=== PATIENT | female | born 1940 | race Caucasian/White ===

== ENCOUNTER 2024-12-01 10:26 | Emergency (ER) | payer MEDICARE, SELFPAY ==
[2024-12-01 10:40] VITALS: BP 109/68
--- NOTE | 2024-12-01 11:21 | ED.MUSCINJ ---
HPI-Injury
General
Chief Complaint: Fall
Source: patient
Exam Limitations: none
Time Seen by Provider: 12/01/24 11:00
History of Present Illness-Injury
Initial Injury comments:
84-year-old female presents complaining of left hand and finger pain after a fall. She states her finger got caught in her walker. She notes swelling and pain to this area. No other complaints this time. She did not hit her head.
Past History
Past History
ED Past Medical History: CAD, HTN, Hypercholesterolemia and IDDM
ED Past Surgical History: Cardiac and Orthopedic
Social History
Tobacco: Non-smoker
Alcohol: None
Drug: None
Personal:
Living: with family
Phy Exam
Physical Exam
Physical Exam:
General: Well-appearing female no acute respiratory distress
Musculoskeletal exam: Left hand swollen ecchymotic and tender mainly over the base of the fifth finger. There is dorsal angulation of the finger.
Skin is intact without laceration or abrasion
Vascular: Brisk Apley refill to all the fingers on the left hand
Injury Course
Orders/Labs/Results
Orders:
Orders
12/01/24 10:49
CR Hand - Left Min 3 Views Urgent
Comment:
Reason For Exam: pain swelling bruising after fall
MDM/Problems Addressed
Differential Diagnosis Includes:
Left hand and finger pain after a fall. Consider fracture versus dislocation versus brain
I personally visualized x-rays of the left hand which demonstrate an angulated fracture of the base of the proximal phalanx of the fifth finger. Gentle traction was provided and volar pressure was provided. The finger better aligned. She was then
placed in an ulnar gutter splint. She was advised follow-up with orthopedics for hand fracture
*Critical Care Note
Total Time (30-74mins, 75-104mins- exclusive of procedures): Not Applicable
ED Attending Note
-
Portions of this chart may have been created with voice recognition software.� Occasional wrong word or��sound alike� substitutions may have occurred due to the inherent limitations of voice recognition software.
Discharge Plan
Departure
Patient Disposition: Home (Routine Discharge)
Date of Disposition: 12/01/24
Time of Disposition: 11:22
Patient with high blood pressure during this ER visit?: No
Discharge Problem:
Finger fracture, left
Instructions: How to care for a splint
Prescriptions:
No Action
multivitamin [Multi-Day] 1 EACH tablet
1 ea PO DAILY
atorvastatin 40 MG tablet
40 mg PO QPM
insulin glargine [Lantus U-100 Insulin] 1,000 UNITS/10 ML solution
20 units SC HS
insulin glargine [Lantus U-100 Insulin] 1,000 UNITS/10 ML solution
40 units SC .MORNING
verapamil 40 MG tablet
40 mg PO DAILY
aspirin 81 MG tablet,delayed release (DR/EC)
81 mg PO DAILY
levothyroxine [Levoxyl] 150 MCG tablet
150 mcg PO DAILY
Patient Comments:
Patient uncertain of dose
hydrochlorothiazide 25 MG tablet
25 mg PO DAILY
insulin lispro [Humalog U-100 Insulin] 100 UNIT/ML solution
0 unit SC AC
Patient Comments:
sliding scale with meals
ramipril 10 MG capsule
20 mg PO DAILY
duloxetine 30 MG capsule,delayed release(DR/EC)
30 mg PO DAILY
cholecalciferol (vitamin D3) 1,000 UNITS tablet
1,000 units PO DAILY
Bifidobacterium infantis [Align (B.infantis)] 4 MG capsule
4 mg PO DAILY
Carbmazepian
11,000 mg PO DAILY
clindamycin HCl 300 MG capsule
300 mg PO TID Qty: 30 0RF
clindamycin HCl 300 MG capsule
300 mg PO QID Qty: 28 0RF
Referrals:
James Lopez MD [Active] -
Activity Restrictions/Additional Instructions:
Elevate for swelling. You may use Tylenol for pain. Keep splint on and dry. Follow-up with orthopedics for further evaluation
Interventions
Interventions:
*Risk Screen - Suicide Last Done: 12/01/24 10:40
*General Assessment Last Done: 12/01/24 10:40
*Neglect/Abuse Screening Last Done: 12/01/24 10:40
*ED- Fall Risk Assessment Last Done: 12/01/24 10:40
*ED COVID-19 Vaccine History Last Done: 12/01/24 10:40
Discharge Date and Time
Print Language: CZECH
== END 2024-12-01 11:47 | disposition home or self-care (01) ==
LOC: EMR 10:26
PROVIDERS: EMERGENCY PHYSICIAN Emergency Medicine; FAMILY PHYSICIAN Internal Medicine
DX: S62.617A Displaced fracture of proximal phalanx of left little finger, initial encounter for closed fracture (principal); W19.XXXA Unspecified fall, initial encounter; I25.10 Atherosclerotic heart disease of native coronary artery without angina pectoris; I10 Essential (primary) hypertension; E78.00 Pure hypercholesterolemia, unspecified; E11.9 Type 2 diabetes mellitus without complications
CPT/HCPCS: 29125; 99283; 73130